=== PATIENT | male | born 1980 | race Caucasian/White ===

== ENCOUNTER 2019-12-11 07:38 | Emergency (ER) | payer MEDICAID ==
[~2019-12-11] VITALS: Ht 167.6 cm; Wt 113.0 kg
[2019-12-11] MEDS ORDERED: SODIUM CHLORIDE 0.9% 1,000 ML IV ONE (07:53)
[2019-12-11] MEDS ORDERED: FAMOTIDINE 20MG/2ML VIAL IV ONE (08:00)
[2019-12-11] MEDS ORDERED: METHYLPREDNISOLONE SOD SUCC 125 MG/2 ML VIAL IV ONE (08:00)
[2019-12-11] MEDS ORDERED: DIPHENHYDRAMINE 50MG/ML VIAL IV ONE (08:00)
[2019-12-11 08:22] LABS: BASOPHILS % 0.3 % (0.0-2.0); EOSINOPHILS % 0.4 % (0.0-5.0); HEMATOCRIT. 40.5 % (42.0-52.0); HEMOGLOBIN. 13.6 g/dL (14.0-18.0); LYMPHOCYTES % 20.8 % (20.0-50.0); MEAN CORPUSCULAR HEMOGLOBIN 34.3 pg (28.0-32.0); MEAN CORPUSCULAR VOLUME 102.4 fL (80.0-94.0); MEAN PLATELET VOLUME 8.2 fl (7.4-10.4); MONOCYTES % 6.7 % (2.0-8.0); NEUTROPHILS % 71.8 % (40.0-76.0); PLATELET 226 x1000/uL (130-400); RED BLOOD CELL COUNT 3.95 mill/uL (4.7-6.1); RED CELL DISTRIBUTION WIDTH 14.1 % (11.6-14.6)
[2019-12-11 08:26] LABS: CHLORIDE 107 mEq/L (98-107)
[2019-12-11 08:30] LABS: ETHANOL BLOOD 34 mg/dL
[2019-12-11 11:30] VITALS: BP 147/96
== END 2019-12-11 11:35 | disposition home or self-care (01) ==
LOC: ER 07:38
DX: T78.40XA Allergy, unspecified, initial encounter (principal); F41.9 Anxiety disorder, unspecified; J31.0 Chronic rhinitis; Z90.49 Acquired absence of other specified parts of digestive tract; X58.XXXA Exposure to other specified factors, initial encounter
CPT/HCPCS: 36415; 70490; 71045; 80053; 80320; 83880; 84484; 85025; 93005; 96361; 96374; 96375; 99285; J1200; J2930; J3490; J7030; G0480